=== PATIENT | male | born 1945 | race Caucasian/White ===

== ENCOUNTER 2018-12-28 12:02 | Emergency (ER) | payer MEDICARE, OTHER ==
[2018-12-28 12:09] VITALS: BP 152/80
--- NOTE | 2018-12-28 12:09 | ED Physician Documentation ---
History of Present Illness - Stated complaint Stated Complaint: LT KNEE PAIN - Chief complaint Chief Complaint: Ext Problem - History obtained from History obtained from: Patient - Additonal information Additional information: Patient is a 73-year-old retensioning gout presenting with approximately 3 days of left knee stiffness and swelling.Patient denies specific inciting injury, trauma, or fall. He describes stiffness that did not resolve with increased exercise. Patient also notes mild swelling without erythema. Patient has been using a brace and ice with some improvement. Patient denies significant change in range of motion, strength, or sensation to leg. Patient also denies fever or other systemic signs of illness. Patient denies specific pain, but again describes stiffness. Patient denies symptoms similar to previous episode of gout.Patient does have medication such as colchicine at home if he needs it. Patient denies any other improving or worsening factors to his symptoms. Review of Systems Constitutional: denies: Fever Skin: denies: Rash, Lesions, Abrasion (s) Musculoskeletal: reports: Extremity pain PD PAST MEDICAL HISTORY - Past Medical History Cardiovascular: Hypertension Musculoskeletal: Gout - Past Surgical History Other past surgical history: Prostate - Present Medications Home Medications: Ambulatory Orders Medication Instructions Recorded Confirmed Hydrocodone/Acetaminophen 1 - 2 each PO Q6H PRN #15 tablet 03/02/15 [Hydrocodon-Acetaminophen 5-325] Losartan [Cozaar] 25 mg PO DAILY 03/02/15 03/02/15 predniSONE [Deltasone] 20 mg PO [id number] #21 tab 03/02/15 Naproxen 500 mg PO BID #14 tablet 12/28/18 - Allergies Allergies/Adverse Reactions: Allergies Allergy/AdvReac Type Severity Reaction Status Date / Time No Known Drug Allergies Allergy Verified 03/02/15 16:15 - Social History Does the pt smoke?: No Smoking Status: Never smoker Does the pt drink ETOH?: Yes Does the pt have substance abuse?: No - POLST Patient has POLST: No PD ED PE NORMAL - Vitals Vital signs reviewed: Yes - General General: Alert and oriented X 3, No acute distress, Well developed/nourished - HEENT HEENT: Atraumatic - Cardiac Cardiac: Strong equal pulses - Respiratory Respiratory: No respiratory distress - Derm Derm: Normal color, Warm and dry, No rash, Other (No erythema, lesions, or rash surrounding left knee) - Extremities Extremities: No deformity, No tenderness to palpate, Normal ROM s pain, No calf tenderness / cord, Other (Right lower extremity unremarkable. Left lower extremity unremarkable except for appreciable swelling diffusely to left knee most pronounced above left knee concerning for bursitis. No laxity on varus/valgus strain, anterior/posterior drawer test. Negative Lachmans) - Neuro Neuro: Alert and oriented X 3, No motor deficit, No sensory deficit - Psych Psych: Normal mood, Normal affect Results - Vitals Vitals: Vital Signs - 24 hr 12/28/18 12:05 Temperature 36.2 C L Heart Rate 94 Respiratory 14 Rate Blood Pressure 152/80 H O2 Saturation 96 Oxygen O2 Source Room air PD MEDICAL DECISION MAKING - ED course Complexity details: reviewed old records, reviewed results, re-evaluated patient, considered differential, d/w patient, d/w family ED course: Patient has history of gout, but denies symptoms similar to such. Patient's knee does not reflect changes indicative of gout, although he has colchicine available to him at home. Have higher suspicion for bursitis, which could also be treated with supportive cares and anti-inflammatories. Do not find evidence of joint infection. Do not feel that patient's symptoms require joint aspiration or arthrocentesis at this time. Patient denies specific trauma and have lower suspicion for fracture, dislocation, or other bony abnormality, but obtain x-ray, which returned unremarkable for acute injury but noted effusion and previous injuries, as well as arthritic changes. Also have lower suspicion for ligamentous or meniscus injury, particularly given lack of mechanism and otherwise benign exam. Had lengthy discussion with patient and regarding all possible etiologies and it is decided to continue supportive cares at home including bracing, icing, anti-inflammatories, as well as for patient to follow- up locally with his orthopedist or primary care physician upon return to [place] in the next several days. Patient and comfortable with this plan. Departure - Departure Disposition: Home, Self Care Clinical Impression: Bursitis Qualifiers: Bursitis location: knee Knee bursitis location: suprapatellar bursitis Laterality: left Qualified Code(s): M70.52 - Other bursitis of knee, left knee Condition: Good Instructions: ED Bursitis Follow-Up: PAYTON LUNA MD [Primary Care Provider] - Within 3 Days Prescriptions: Naproxen 500 mg PO BID #14 tablet Comments: Please continue home prescriptions as instructed. Please use Naproxen as instructed to help relieve likely bursitis. Also recommend elevation, ice, and wearing the brace. Please follow-up with your primary care physician or orthopedist when you return home next week. Return to ED if expands worsening symptoms or other concerns.
--- NOTE | 2018-12-28 13:10 | XRAY Report ---
Reason: stiffness, swelling and decreased ROM Procedure Date: 12/28/2018 Accession Number: [id number] / [id number] Procedure: XR - Knee 4 View LT CPT Code: FULL RESULT: EXAM: LEFT KNEE RADIOGRAPHY EXAM DATE: 12/28/2018 12:38 PM. CLINICAL HISTORY: Stiffness, swelling and decreased ROM. COMPARISON: None. TECHNIQUE: 4 views. FINDINGS: Bones: Osteopenia. No acute displaced fracture. Healed proximal left fibular fracture deformity. Tracks from old internal fixation screws at the proximal tibia and fibula. Benign-appearing periosteal reaction at the anterior aspect of the midshaft of the left femur. Joints: Severe tricompartmental knee osteoarthritis. Medial knee effusion. Mild heterotopic ossification about the knee. Soft Tissues: Mild soft tissue swelling about the knee. Muscles are gracile. IMPRESSION: 1. Severe tricompartmental left knee osteoarthritis. 2. Medium knee effusion. 3. Healed proximal fibula fracture. Previous internal fixation with explantation of prior instrumentation. 4. Mild periosteal reaction at the anterior aspect of the midshaft of the left femur, possibly sequelae of prior injury. Recommend correlation with point tenderness. [facility]
== END 2018-12-28 13:32 | disposition home or self-care (01) ==
LOC: ED 12:02
DX: M70.52 Other bursitis of knee, left knee (principal); I10 Essential (primary) hypertension; Z87.39 Personal history of other diseases of the musculoskeletal system and connective tissue
CPT/HCPCS: 99283